=== PATIENT | female | born 1965 | race African-American/Black ===

== ENCOUNTER 2017-03-19 16:53 | Emergency (ER) | payer MEDICAID ==
[~2017-03-19] VITALS: Ht 167.6 cm; Wt 85.0 kg
[2017-03-19] MEDS ORDERED: HYDR12.529 PO (17:07)
[2017-03-19] MEDS ORDERED: METOCLOPRAMIDE HCL 10MG/2ML VIAL IV STA (17:57)
[2017-03-19] MEDS ORDERED: ONDANSETRON HCL 4MG/2ML VIAL IV STA (17:57)
[2017-03-19] MEDS ORDERED: SODIUM CHLORIDE 0.9% 1,000 ML IV ONE (17:57)
[2017-03-19] MEDS ORDERED: MORPHINE SULFATE 4 MG/ML CPJ (NOT FOR IM USE) IV STA (17:57)
[2017-03-19 18:57] LABS: HCG SCREEN NEGATIVE
[2017-03-19 20:27] VITALS: BP 160/70
== END 2017-03-19 22:23 | disposition home or self-care (01) ==
LOC: ER 17:44
DX: R51 Headache (principal); R42 Dizziness and giddiness; R03.0 Elevated blood-pressure reading, without diagnosis of hypertension
CPT/HCPCS: 84703; 96374; 96375; 99284; J2270; J2405; J2765; J7030; Z7610